=== PATIENT | male | born 1975 | race African-American/Black ===

== ENCOUNTER 2023-10-12 14:29 | Inpatient (IN) | payer SELFPAY ==
[~2023-10-12] VITALS: Ht 175.3 cm; Wt 86.5 kg
[2023-10-12 14:36] VITALS: O2SAT 98
[2023-10-12] MEDS ORDERED: SODIUM CHLORIDE 0.9% 1,000 ML IV ONE (15:00)
[2023-10-12] MEDS ORDERED: METOPROLOL SUCCINATE 50MG ER TABLET PO STA (15:01)
[2023-10-12 15:30] LABS: EOSINOPHILS % 2.8 % (0.0-5.0); HEMATOCRIT. 37.2 % (42.0-52.0); HEMOGLOBIN. 12.3 g/dL (14.0-18.0); LYMPHOCYTES % 18.5 % (20.0-50.0); MEAN CORPUSCULAR HEMOGLOBIN 30.6 pg (28.0-32.0); MEAN CORPUSCULAR HGB CONC 33.2 g/dL (31.0-37.0); MEAN CORPUSCULAR VOLUME 92.3 fL (80.0-94.0); MEAN PLATELET VOLUME 8.1 fl (7.4-10.4); MONOCYTES % 7.2 % (2.0-8.0); NEUTROPHILS % 70.5 % (40.0-76.0); PLATELET 229 x1000/uL (130-400); RED BLOOD CELL COUNT 4.03 mill/uL (4.7-6.1); RED CELL DISTRIBUTION WIDTH 17.9 % (11.6-14.6); WHITE BLOOD COUNT 5.5 x1000/uL (4.5-11.0)
[2023-10-12 15:39] LABS: ALANINE AMINOTRANSFERASE 19 IU/L (10-49); ALBUMIN 4.6 g/dL (3.2-4.8); ASPARTATE AMINOTRANSFERASE 29 IU/L (<34); BILIRUBIN TOTAL 0.2 mg/dL (0.1-1.0); CALCIUM 9.5 mg/dL (8.7-10.4); CARBON DIOXIDE 20 mEq/L (21-32); CHLORIDE 98 mEq/L (98-107); GLUCOSE 74 mg/dL (70-105); PROTEIN TOTAL 8.5 g/dL (6.0-8.3); SODIUM 141 mEq/L (136-145)
[2023-10-12 15:48] LABS: ETHANOL BLOOD < 10 mg/dL (<10)
[2023-10-12 15:49] LABS: UREA NITROGEN BLOOD 112 mg/dL (9-23)
[2023-10-12 15:50] LABS: CREATININE 21.8 mg/dL (0.6-1.3)
[2023-10-12 16:44] LABS: TROPONIN I HIGH SENSITIVITY 21 ng/L (3.0-53)
[2023-10-12] MEDS ORDERED: LORAZEPAM 2MG/ML INJ IV ONE (17:45)
[2023-10-12 18:00] VITALS: TEMP 97.9
[2023-10-12] MEDS ORDERED: CLONIDINE 0.1MG TABLET PO PRN (18:00)
[2023-10-12] MEDS ORDERED: ACETAMINOPHEN 325MG TABLET PO PRN ×2 (18:00)
[2023-10-12] MEDS ORDERED: MAGNESIUM/ALUMINUM HYDROXIDE/SIMETHICONE 30ML UDC PO PRN (18:00)
[2023-10-12] MEDS ORDERED: DIPHENHYDRAMINE 50MG/ML VIAL IV PRN (18:00)
[2023-10-12] MEDS ORDERED: ONDANSETRON HCL 4MG/2ML INJ IV PRN (18:00)
[2023-10-12] MEDS ORDERED: DOCUSATE SODIUM 100MG CAPSULE PO PRN (18:00)
[2023-10-12] MEDS ORDERED: IPRATROPIUM/ALBUTEROL 0.5-3(2.5)MG/3ML NEB HHN PRN (18:00)
[2023-10-12] MEDS ORDERED: NA PHOS,M-B/NA PHOS,DI-BA ENEMA 118ML PR PRN (18:00)
[2023-10-12] MEDS ORDERED: LORAZEPAM 2MG/ML INJ IV PRN (18:00)
[2023-10-12] MEDS ORDERED: ASPIRIN 325MG EC TABLET PO ONE (18:00)
[2023-10-12] MEDS ORDERED: GUAIFENESIN 200MG/10ML SUGAR FREE UDC PO PRN (18:00)
[2023-10-12 18:17] LABS: T4 FREE 0.89 ng/dL (0.89-1.76); THYROID STIMULATING HORMONE 0.82 uIU/mL (0.55-4.78)
[2023-10-12 18:36] LABS: HEPATITIS B SURFACE AB > 1000.0 mIU/mL (<10); HEPATITIS B SURFACE ANTIGEN NEGATIVE (Negative)
[2023-10-12 18:53] LABS: IRON 49 ug/dL (65-175); TOTAL IRON BINDING CAPACITY 214 ug/dl (250-425)
[2023-10-12 19:26] LABS: AMMONIA < 10 uMol/L (<32)
[2023-10-12 22:28] VITALS: BP 173/102; PULSE 91; RESP 22
[2023-10-13] MEDS ORDERED: PANTOPRAZOLE SODIUM 40 MG/VIAL IV SCH (09:00)
== END 2023-10-12 22:43 | disposition left against medical advice (07) | DRG 52 ==
LOC: ER 14:48 → MICUSO 17:46 → EDBEDREQ 17:48 → EDBEDREQTM 17:48 → MICUSO 23:44
PROVIDERS: ADMIT Internal Medicine; ATTEND Internal Medicine
DX: G92.8 Other toxic encephalopathy (principal); I12.0 Hypertensive chronic kidney disease with stage 5 chronic kidney disease or end stage renal disease; Z99.2 Dependence on renal dialysis; N18.6 End stage renal disease; D64.9 Anemia, unspecified; Z53.29 Procedure and treatment not carried out because of patient's decision for other reasons
CPT/HCPCS: 36415; 71045; 80053; 80061; 80320; 80329; 82140; 82693; 82728; 83036; 83540; 83550; 83605; 84439; 84443; 84484; 85025; 86706; 87340; 93005; 99285; J2060; J7030; G0480